=== PATIENT | female | born 1955 | race Caucasian/White ===

== ENCOUNTER 2020-02-16 11:12 | Emergency (ER) | payer OTHER ==
[2020-02-16] MEDS ORDERED: Sodium Chloride 0.9% 1,000 ML IV ONE (11:22)
[2020-02-16] MEDS ORDERED: Sodium Chloride 0.9% 10 ML Syringe FLUSH PRN (11:22)
[2020-02-16] MEDS ORDERED: Sodium Chloride 0.9% 1,000 ML ONE (11:39)
--- NOTE | 2020-02-16 11:56 | EDM.PDOC ---
ED HPI GENERAL MEDICAL PROBLEM - General Chief Complaint: Respiratory Problem Stated Complaint: FEVER/COVID Time Seen by Provider: 02/16/20 11:35 Source of Information: Reports: Patient History Limitations: Reports: No Limitations - History of Present Illness INITIAL COMMENTS - FREE TEXT/NARRATIVE: 65 YO WF PRESENTS TO ER WITH FEVER/CHILLS, BODY ACHES AND FATIGUE X 3 DAYS. PT R EPORTS YESTERDAY SHE DEVELOPED SOME NAUSEA/VOMITING AND DIARRHEA PROMPTING CONCERN. PT REPORTS SHE TESTED POSITIVE FOR COVID 3 DAYS AGO AND HAD BEEN AT HOME RESTING. PT CALLED CLINIC TODAY TO SEE IF SHE COULD GET SOME IVF DUE TO THE N/V/D AND WAS INSTRUCTED TO COME TO ER FOR FURTHER EVALUATION AND TREATMENT. PT DENIES CHEST PAIN/SHORTNESS OF BREATH. PT STATES SHE HAS BEEN TOLERATING FLUIDS TODAY AND DENIES ANY ABDOMINAL PAIN, DIZZINESS OR WORSENING FATIGUE OR COUGH. headache Pain Score (Numeric/FACES): 5 - Related Data Allergies Allergy/AdvReac Type Severity Reaction Status Date / Time No Known Allergies Allergy Verified 02/16/20 11:19 Home Meds: Home Meds ALPRAZolam [Alprazolam] 0.5 mg PO DAILY PRN 02/16/20 [History] Alendronate Sodium [Fosamax] 70 mg PO DAILY 02/16/20 [History] Cholecalciferol (Vitamin D3) [Vitamin D3] 2,000 unit PO DAILY 02/16/20 [History] DULoxetine [Cymbalta] 30 mg PO DAILY 02/16/20 [History] Losartan Potassium 25 mg PO DAILY 02/16/20 [History] Omeprazole 20 mg PO DAILY 02/16/20 [History] hydroCHLOROthiazide [Hydrochlorothiazide] 12.5 mg PO DAILY 02/16/20 [History] ED ROS GENERAL - Review of Systems Review Of Systems: See Below Constitutional: Reports: Fever, Chills, Malaise HEENT: Reports: Rhinitis Respiratory: Reports: Cough. Denies: Shortness of Breath, Wheezing, Pleuritic Chest Pain Cardiovascular: Reports: No Symptoms. Denies: Chest Pain Endocrine: Reports: No Symptoms GI/Abdominal: Reports: Diarrhea, Nausea, Vomiting : Reports: No Symptoms Musculoskeletal: Reports: No Symptoms Skin: Reports: No Symptoms Neurological: Reports: No Symptoms Psychiatric: Reports: No Symptoms Hematologic/Lymphatic: Reports: No Symptoms Immunologic: Reports: No Symptoms ED EXAM, GENERAL - Physical Exam Exam: See Below Exam Limited By: No Limitations General Appearance: Alert, WD/WN, No Apparent Distress Eye Exam: Bilateral Eye: EOMI, PERRL Nose: Clear Rhinorrhea Throat/Mouth: Normal Inspection, Normal Lips, Normal Teeth, Normal Gums, Normal Oropharynx, Normal Voice, No Airway Compromise Head: Atraumatic, Normocephalic Neck: Normal Inspection, Supple, Non-Tender, Full Range of Motion Respiratory/Chest: No Respiratory Distress, Lungs Clear, Normal Breath Sounds, No Accessory Muscle Use, Chest Non-Tender Cardiovascular: Normal Peripheral Pulses, Regular Rate, Rhythm, No Edema, No Gallop, No JVD, No Murmur, No Rub GI/Abdominal: Normal Bowel Sounds, Soft, Non-Tender, No Organomegaly, No Distention, No Abnormal Bruit, No Mass Back Exam: Normal Inspection, Full Range of Motion, NT Extremities: Normal Inspection, Normal Range of Motion, Non-Tender, Normal Capillary Refill, No Pedal Edema Neurological: Alert, Oriented, CN II-XII Intact, Normal Cognition, Normal Gait, Normal Reflexes, No Motor/Sensory Deficits Psychiatric: Normal Affect, Normal Mood Skin Exam: Warm, Dry, Intact, Normal Color, No Rash Lymphatic: No Adenopathy Course - Vital Signs Last Recorded V/S: Last Vital Signs Temp 37.1 C 02/16/20 12:57 Pulse 77 02/16/20 12:46 Resp 18 02/16/20 12:46 BP 103/71 02/16/20 12:46 Pulse Ox 94 L 02/16/20 12:46 - Orders/Labs/Meds Orders: Active Orders 24 hr Category Date Time Status Blood Pressure Mgt: Sepsis [RC] Q15MX2 Care 02/16/20 11:24 Active CULTURE BLOOD [BC] Stat Lab 02/16/20 11:24 Ordered CULTURE BLOOD [BC] Stat Lab 02/16/20 11:35 Received UA W/MICROSCOPIC [URIN] Stat Lab 02/16/20 12:54 Ordered Sodium Chloride 0.9% [Saline Flush] Med 02/16/20 11:22 Active 10 ml FLUSH Q8HR PRN Blood Culture x2 Reflex Set [OM.PC] Stat Oth 02/16/20 11:23 Ordered Saline Lock Insert [OM.PC] Stat Oth 02/16/20 11:23 Ordered Severe Sepsis Onset Time [OM.PC] Stat Oth 02/16/20 11:23 Ordered Medication Orders Sodium Chloride (Saline Flush) 10 ml FLUSH Q8HR PRN PRN Reason: keep vein open Labs: Laboratory Tests 02/16/20 02/16/20 02/16/20 Range/Units 11:35 11:35 11:35 WBC 6.32 (5.00-10.00) 10^3/uL RBC 4.22 (3.80-5.50) 10^6/uL Hgb 12.6 (12.0-16.0) g/dL Hct 37.8 (37.0-47.0) % MCV 89.6 (82.0-92.0) fL MCH 29.9 (27.0-31.0) pg MCHC 33.3 (32.0-36.0) g/dL RDW 13.4 (11.5-14.5) % Plt Count 197 (150-400) 10^3/uL MPV 10.3 (7.4-10.4) fL Immature Gran % (Auto) 0.2 (0.0-5.0) % Neut % (Auto) 84.4 H (50.0-70.0) % Lymph % (Auto) 10.9 L (20.0-40.0) % [place] % (Auto) 4.3 (2.0-8.0) % Eos % (Auto) 0.0 L (1.0-3.0) % Baso % (Auto) 0.2 (0.0-1.0) % Neut # (Auto) 5.34 (2.50-7.00) 10^3/uL Lymph # (Auto) 0.69 L (1.00-4.00) 10^3/uL [place] # (Auto) 0.27 (0.10-0.80) 10^3/uL Eos # (Auto) 0.00 L (0.10-0.30) 10^3/uL Baso # (Auto) 0.01 (0.00-0.10) 10^3/uL Immature Gran # (Auto) 0.01 (0.00-0.50) 10^3/uL Sodium 131 L (136-145) mmol/L Potassium 3.0 L (3.3-5.3) mmol/L Chloride 99 (98-115) mmol/L Carbon Dioxide 23.5 (21.0-32.0) mmol/L Anion Gap 11.5 (5-15) mmol/L BUN 12 (6-25) mg/dL Creatinine 0.65 (0.51-1.17) mg/dL Est Cr Clr Drug Dosing 77.64 mL/min Estimated GFR (MDRD) > 60 mL/min Glucose 134 H (75 - 99) mg/dL Lactic Acid 0.8 (0.4-2.0) mmol/L Calcium 8.2 L (8.7-10.3) mg/dL Total Bilirubin 0.6 (0.2-1.0) mg/dL AST 27 (15-37) U/L ALT 30 (12-78) U/L Alkaline Phosphatase 58 (46-116) IU/L Total Protein 7.4 (6.4-8.2) g/dL Albumin 3.25 (3.00-4.80) g/dL Meds: Medications Generic Name Dose Route Start Last Admin Trade Name Freq PRN Reason Stop Dose Admin Sodium Chloride 10 ml 02/16/20 11:22 Saline Flush FLUSH Q8HR PRN keep vein open Discontinued Medications Generic Name Dose Route Start Last Admin Trade Name Freq PRN Reason Stop Dose Admin Sodium Chloride 1,000 mls @ 999 mls/hr 02/16/20 11:22 02/16/20 12:00 Normal Saline IV 02/16/20 12:22 999 mls/hr BOLUS ONE Administration Protocol Sodium Chloride Confirm 02/16/20 11:39 02/16/20 12:00 Normal Saline Administered 02/16/20 11:40 Not Given Dose 1,000 mls @ as directed .ROUTE .STK-MED ONE - Radiology Interpretation Free Text/Narrative:: CXR- BILATERAL PATCHY INFILTRATES RIGHT>LEFT. Departure - Departure Time of Disposition: 13:03 Disposition: DC/Tfer to Acute Hospital 02 Condition: Fair Clinical Impression: Pneumonia due to COVID-19 virus - Discharge Information Referrals: Ronel Ramirez, [employer]MI[employer] INTEREST CALCULATOR CLERK [Primary Care Provider] - Forms: ED Department Discharge, Interfacility Transfer EMTALA Sepsis Event Note (ED) - Evaluation Sepsis Screening Result: Possible Sepsis Risk - Focused Exam Vital Signs: Vital Signs Temp Pulse Resp BP BP Pulse Ox 10/05/20 12:57 37.1 C 02/16/20 12:46 77 18 103/71 94 L 02/16/20 12:31 77 18 133/63 96 02/16/20 12:16 81 16 113/66 95 02/16/20 12:06 82 16 105/61 94 L 02/16/20 12:00 83 16 95 02/16/20 11:45 86 18 124/70 93 L 02/16/20 11:39 124/70 02/16/20 11:24 107/58 L 02/16/20 11:20 36.8 C 98 16 115/65 94 L - My Orders Last 24 Hours: My Active Orders 02/16/20 11:22 Sodium Chloride 0.9% [Saline Flush] 10 ml FLUSH Q8HR PRN 02/16/20 11:23 Blood Culture x2 Reflex Set [OM.PC] Stat Saline Lock Insert [OM.PC] Stat Severe Sepsis Onset Time [OM.PC] Stat 02/16/20 11:24 Blood Pressure Mgt: Sepsis [RC] Q15MX2 CULTURE BLOOD [BC] Stat 02/16/20 11:35 CULTURE BLOOD [BC] Stat 02/16/20 12:54 UA W/MICROSCOPIC [URIN] Stat - Assessment/Plan Last 24 Hours: My Active Orders 02/16/20 11:22 Sodium Chloride 0.9% [Saline Flush] 10 ml FLUSH Q8HR PRN 02/16/20 11:23 Blood Culture x2 Reflex Set [OM.PC] Stat Saline Lock Insert [OM.PC] Stat Severe Sepsis Onset Time [OM.PC] Stat 02/16/20 11:24 Blood Pressure Mgt: Sepsis [RC] Q15MX2 CULTURE BLOOD [BC] Stat 02/16/20 11:35 CULTURE BLOOD [BC] Stat 02/16/20 12:54 UA W/MICROSCOPIC [URIN] Stat Assessment:: 1. COVID POSITIVE 2. BILATERAL INTERSTITIAL PNEUMONIA RIGHT>LEFT Plan: 1. DISCUSSED CASE WITH GERONIMO PADRON WHO DISCUSSED WITH DR ARRIAGA AND DR ESTEVEZ WHO WOULD LIKE PATIENT TRANSFERED TO [facility] FOR [facility] TREATMENT 2. SUPPORTIVE CARE 3. DISCUSSED WITH [address] MATTHEWS WHO ACCEPTED TRANSFER. PER HOSPITALIST- IVF ONLY FOR TREATMENT PRIOR TO HOSPITALIZATION
--- NOTE | 2020-02-16 12:03 | CR ---
[id number] RAD/RAD Chest PA or AP 1V EXAM: RAD Chest PA or AP 1V INDICATION: COVID POSITIVE, FEVER. COMPARISON: None. DISCUSSION: Patchy areas of nonmasslike parenchymal opacification in both lungs right greater than left. Appearance and distribution is most consistent with pneumonia including sequela of Covid19. No other significant abnormality. IMPRESSION: As above. Klaus Mcdonald MD 02/16/20 [id number] Thank you for allowing us to participate in the care of your patient.
[2020-02-16 12:07] LABS: ANION GAP 11.5 mmol/L (5-15); CHLORIDE,CL 99 mmol/L (98-115); SODIUM,NA 131 mmol/L (136-145)
== END 2020-02-16 13:55 ==
LOC: KA.ED 11:12
DX: U07.1 COVID-19 (principal); J12.89 Other viral pneumonia
CPT/HCPCS: 36415; 71045; 80053; 81001; 83605; 85025; 87040; 96360; 99285; J7030; 99283